=== PATIENT | male | born 1960 | race Hispanic/Latino ===

== ENCOUNTER 2021-08-29 11:39 | Emergency (ER) | payer MEDICAID ==
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
--- NOTE | 2021-08-29 12:53 | XRay Report ---
RIGHT HIP 2 VIEWS INDICATION: hip injury. COMPARISON: None. IMPRESSION: 3 orthopedic screws transversely right femoral neck. There are rather acute appearing fr acture lines through the right femoral neck extending to the superior aspect of the lesser trochanter . This could represent a new fracture at a site of previous internal fixation, correlate with the pat ient's history. There is normal articulation at the right hip with no significant joint pathology. Th e pelvic bones are grossly intact. Advanced degenerative disc disease is noted in the lower lumbar sp ine. Signer Name: Khris Gong Jr, MD Signed: 08/29/2021 12:48 PM Workstation Name: [id number]
[2021-08-29 12:58] LABS: Basophils % (Auto) 0.9 % (0.0-1.8); Eosinophils # (Auto) 0.1 K/mm3 (0.0-0.4); Eosinophils % (Auto) 1.3 % (0.0-4.3); Hemoglobin 15.4 gm/dl (11.8-15.2); Lymphocytes # (Auto) 1.2 K/mm3 (1.2-5.4); Mean Corpuscular HGB Conc 33 % (32-34); Mean Corpuscular Volume 87 fl (84-94); Monocytes # (Auto) 0.5 K/mm3 (0.0-0.8); Monocytes % (Auto) 10.8 % (0.0-7.3); Platelet Count 134 K/mm3 (140-440); Red Blood Count 5.29 M/mm3 (3.65-5.03); Red Cell Distribution Width 14.1 % (13.2-15.2)
[2021-08-29 13:39] LABS: Alanine Aminotransferase 15 units/L (7-56); Blood Urea Nitrogen 15 mg/dL (9-20); Calcium 9.2 mg/dL (8.4-10.2); Hemolysis Index 40
[2021-08-29 13:50] LABS: BUN/Creatinine Ratio 30
[2021-08-29 13:53] LABS: Bilirubin,Urine NEG (Negative); Blood,Urine NEG (Negative); Color,Urine Straw (Yellow); Protein,Urine <15 mg/dL mg/dL (Negative); RBC,Urine < 1.0 /HPF (0.0-6.0); WBC,Urine < 1.0 /HPF (0.0-6.0)
[2021-08-29 13:59] LABS: Amphetamine Screen,Urine Negative; Benzodiazepines Screen,Urine Negative; Cocaine Screen,Urine Negative; Methadone Screen,Urine Negative; Opiate Screen,Urine Negative
[2021-08-29 14:24] LABS: Cannabinoid Screen,Urine Positive
--- NOTE | 2021-08-29 14:36 | Cat Scan Report ---
CT PELVIS WITHOUT CONTRAST HISTORY: Right hip injury TECHNIQUE: Helical CT was sagittal and coronal reformatted images. All CT scans at this location are performed using CT dose reduction for ALARA by means of automated exposure control. COMPARISON: Right hip films performed same day. FINDINGS: Additional information was obtained from the ER doctor. This patient has a history of a sub acute right femoral neck fracture which was internally fixated approximately 1 week ago. The fracture lines in the right femoral neck are still visible. There may be minimal calcified callus. Alignment appears anatomic. No new acute pelvic or right hip fracture is appreciated on today's exam. There are advanced degenerative changes in the lower lumbar spine. The visualized pelvic viscera are unremarka ble. IMPRESSION: Subacute, internally fixated right femoral neck fracture in anatomic alignment. Per history, surgery was performed approximately 1 week ago. There is no evidence for new/acute fracture today. Signer Name: Khris Gong Jr, MD Signed: 08/29/2021 2:31 PM Workstation Name: [id number]
[2021-08-29] MEDS ORDERED: INSULIN REGULAR, HUMAN 100 UNITS/1 ML IV ONE (16:00)
[2021-08-31] MEDS ORDERED: INSULIN REGULAR, HUMAN 100 UNITS/1 ML SUB-Q ONE (14:55)
[2021-08-31 17:15] LABS: Blood Urea Nitrogen 18 mg/dL (9-20); Calcium 9.9 mg/dL (8.4-10.2); Hemolysis Index 33
[2021-08-31 17:17] LABS: BUN/Creatinine Ratio 26
[2021-09-01] MEDS ORDERED: INSULIN REGULAR, HUMAN 100 UNITS/1 ML IV ONE (12:13)
[2021-09-01] MEDS ORDERED: INSULIN REGULAR, HUMAN 100 UNITS/1 ML SUB-Q ONE (12:21)
--- NOTE | 2021-09-01 12:22 | Emergency Department Report ---
Blank Doc - Documentation Documentation: 61-year-old male who has been in the ED since August 30 awaiting case management placement. Chart reviewed and I briefly spoke to the patient. Patient has not had vital signs documented in 2 days. I requested that nurse recheck vitals and document Patient states he has a history of diabetes. He did receive 1 dose of insulin yesterday but he does not have standing insulin ordered or Accu-Chek orders palced Patient states he takes insulin 70/30 22 units in a.m. and 25 units in the p.m. Novolin 70/30 at his reported doses were ordered accuchecks ordered I requested Accu-Chek now with a sliding scale dose with a dose of insulin as per moderate dosing protocol As per case management notes it is possible patient might be placed by Saturday glucose was 329, pt reused Regular insulin and will only take his 70/30. Next dose due at 8pm
[2021-09-01] MEDS: INSULIN NPH/REGULAR 70/30 INJ SUB-Q SCH (20:08)
[2021-09-02] MEDS: INSULIN NPH/REGULAR 70/30 INJ SUB-Q SCH ×2 (08:20→18:09)
--- NOTE | 2021-09-02 11:43 | Emergency Department Report ---
Blank Doc - Documentation Documentation: 61 yo male awaiting placement as per case management. Currently on 70/30 insu lorie for diabetes and refuses to receive regular insulin for hyperglycemic episodes. Chart and vital signs reviewed
--- NOTE | 2021-09-03 11:51 | Event Note ---
Date: 09/03/21 Patient remained stable in the ER with stable vital sign. Patient is currently on 70/30 insulin. Waiting for case management tomorrow for placement.
[2021-09-03] MEDS: INSULIN NPH/REGULAR 70/30 INJ SUB-Q SCH ×2 (12:03→19:09)
[2021-09-04] MEDS: INSULIN NPH/REGULAR 70/30 INJ SUB-Q SCH (07:30)
[2021-09-05] MEDS: INSULIN NPH/REGULAR 70/30 INJ SUB-Q SCH ×2 (08:30→17:38)
--- NOTE | 2021-09-05 18:38 | Emergency Department Report ---
Blank Doc - Documentation Documentation: S: No events reported overnight O: Vital Signs - 8 hr 09/05/21 17:40 Temperature 97.9 F Pulse Rate 93 H Respiratory 14 Rate Blood Pressure 120/68 [Left] O2 Sat by Pulse 97 Oximetry A/P: Cleared by psych awaiting safe discharge home by social work
[2021-09-06] MEDS: INSULIN NPH/REGULAR 70/30 INJ SUB-Q SCH ×2 (10:21→19:22)
--- NOTE | 2021-09-06 13:47 | Emergency Department Report ---
Blank Doc - Documentation Documentation: 61-year-old male still awaiting case management placement. Patient has standing insulin orders not as needed. Mild elevation in glucose because RN has been giving him holding meds based on blood glucose level.
[2021-09-06] MEDS ORDERED: NON-FORMULARY EACH (Clopidogrel 75 MG) PO SCH (16:15)
[2021-09-06] MEDS: CLOPIDOGREL 75 MG TAB PO SCH (16:56)
[2021-09-06] MEDS: CHOLECALCIFEROL (VIT D3) 1000 UNIT (25 mcg) TAB PO SCH (19:22)
[2021-09-06] MEDS: LACTULOSE 20 GM/30 ML ORAL LIQD PO SCH (19:22)
[2021-09-06] MEDS: PREGABALIN 75 MG CAP PO SCH (19:22)
[2021-09-06] MEDS: PREGABALIN 25 MG CAP PO SCH (19:22)
[2021-09-06] MEDS ORDERED: PREGABALIN 100 MG PO SCH (20:00)
[2021-09-07] MEDS ORDERED: LACTULOSE PO SCH (10:00)
[2021-09-07] MEDS ORDERED: VITAMIN D3 25 MCG PO SCH (10:00)
[2021-09-07] MEDS: PREGABALIN 25 MG CAP PO SCH ×2 (10:04→17:57)
[2021-09-07] MEDS: PREGABALIN 75 MG CAP PO SCH ×2 (10:04→17:57)
[2021-09-07] MEDS: LACTULOSE 20 GM/30 ML ORAL LIQD PO SCH (10:05)
--- NOTE | 2021-09-07 14:53 | Emergency Department Report ---
Blank Doc - Documentation Documentation: Chart reviewed. Patient in the ED awaiting placement by case management. No acute issues noted on vital signs or nurses notes. Meds reconciled yesterday
--- NOTE | 2021-09-07 15:58 | XRay Report ---
XR chest 1V ap INDICATION / CLINICAL INFORMATION: TB. COMPARISON: None available. FINDINGS: SUPPORT DEVICES: None. HEART /PULMONARY VASCULATURE: No significant abnormality. LUNGS / PLEURA: There is emphysema. No suspicious pulmonary nodule or mass. No acute airspace disease . No pleural effusion or pneumothorax. ADDITIONAL FINDINGS: Remote bilateral rib fractures and right clavicle fracture. No acute osseous fin dings. IMPRESSION: Emphysema. No acute abnormality. Signer Name: Rey White MD Signed: 09/07/2021 3:54 PM Workstation Name: [id number]
--- NOTE | 2021-09-07 16:28 | Event Note ---
Date: 09/07/21 Patient chest x-ray showed no evidence of pulmonary tuberculosis.
[2021-09-07] MEDS: INSULIN NPH/REGULAR 70/30 INJ SUB-Q SCH ×2 (17:44→17:56)
[2021-09-07] MEDS: CHOLECALCIFEROL (VIT D3) 1000 UNIT (25 mcg) TAB PO SCH (17:57)
[2021-09-07] MEDS: CLOPIDOGREL 75 MG TAB PO SCH (17:57)
[2021-09-08] MEDS: INSULIN NPH/REGULAR 70/30 INJ SUB-Q SCH (08:09)
[2021-09-08] MEDS: PREGABALIN 75 MG CAP PO SCH (08:50)
[2021-09-08] MEDS: PREGABALIN 25 MG CAP PO SCH (08:50)
[2021-09-08 09:43] VITALS: BP 110/70
== END 2021-09-08 10:37 | disposition home or self-care (01) ==
LOC: ED 11:39
DX: M25.551 Pain in right hip (principal); E11.65 Type 2 diabetes mellitus with hyperglycemia; W19.XXXA Unspecified fall, initial encounter; Y93.89 Activity, other specified; Y92.89 Other specified places as the place of occurrence of the external cause; Y99.8 Other external cause status; Z20.822 Contact with and (suspected) exposure to COVID-19; Z79.899 Other long term (current) drug therapy
CPT/HCPCS: 36415; 71045; 72192; 80048; 80053; 80307; 81001; 82962; 85025; 96372; 96374; 99285; Q0177; Q9967; J1815